=== PATIENT | male | born 1945 | race Caucasian/White ===

== ENCOUNTER → 2016-11-04 | Outpatient (CLI) | payer OTHER ==
[~2016-11-04] MED LIST: AMLO10TA2 PO; CA C1TAB78 PO; FURO40TA5 PO; HYDR-973 PO; HYDR25TA PO; IOHEXOL 350 MG/ML 100ml INJECTION ONE; LORA10TA7 PO; NORMAL SALINE 100 ML ONE; ONDA4TAB4 PO; RISP0.5T20 PO; SALINE FLUSH 10ml SYRINGE ONE; TAMS0.4C47 PO; [UNRECOGNIZED DRUG - CODE] PO
--- NOTE | 2016-11-04 10:27 | DI ---
Indication: ITS.REASON: FAMILY HX OF GASTRIC ANEURYSM PROCEDURE: CTA ABDOMEN/PELVIS W/WO CONT.: Encounter: Initial Comparison: None Technique: Axial CT angiography of the abdomen and pelvis was performed with and without contrast. Three-dimensional surface shaded volume rendered imaging of the aorta was created by the technologist on a dedicated workstation under the direction of the interpreting radiologist and reviewed. Coronal and sagittal MIP reconstructed images were created and reviewed. Automated Exposure Control and Iterative Reconstruction dose reducing techniques were utilized. 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 Noncontrast images show scattered atherosclerotic plaque in the abdominal aorta and its major branches. Postcontrast imaging shows mild cardiomegaly and a left hepatic cyst in the arterial phase liver. Smaller cysts in the inferior right lobe of the liver. The gallbladder, spleen, pancreas and right adrenal gland are within normal limits. Adenomatous hyperplasia of the left adrenal gland. The kidneys appear normal. No evidence of aortic aneurysm or dissection. Hepatic arterial anatomy shows a replaced right hepatic artery arising from the SMA. No evidence of visceral arterial aneurysm or stenosis. Mild plaque at the right renal artery origin. The celiac, SMA and MIRIAN are patent. The common, internal and external iliac arteries are normal apart from mild atherosclerotic plaque. No significant stenosis or occlusion. The visualized common femoral and superficial femoral arteries are also widely patent. There is a presumed [employer] shunt catheter terminating in the left lower abdomen. The bladder appears grossly normal. No free fluid. The small and large bowel loops are within normal limits. Bone windows show no acute findings. Impression: No acute disease process seen. No aneurysm or dissection identified. .
== END ==
LOC: IMA 09:06
PROVIDERS: ATTEND Internal Medicine
DX: Z82.49 Family history of ischemic heart disease and other diseases of the circulatory system (principal)